=== PATIENT | male | born 1990 | race Two or more races ===

== ENCOUNTER 2016-12-23 17:54 | Emergency (ER) | payer SELFPAY ==
[~2016-12-23] VITALS: Ht 190.5 cm; Wt 86.2 kg
[2016-12-23 18:15] VITALS: BP 132/82
[2016-12-23] MEDS ORDERED: PENI500T PO (19:12)
[2016-12-23] MEDS ORDERED: TRAM50TA PO (19:12)
--- NOTE | 2016-12-23 19:12 | PHYS DOC ---
Past Medical History Past Medical History: No Pertinent History, Other Additional Past Medical Histor: dental Past Surgical History: No Surgical History Alcohol Use: None Drug Use: None Adult General Chief Complaint Chief Complaint: DENTAL PROBLEM HPI HPI Patient is a 26 year old male who presents with dental pain for years that has worsened over the last few days. Denies fever, chills. No interventions prior to arrival. Review of Systems Review of Systems Constitutional: Denies fever or chills [] Eyes: Denies change in visual acuity, redness, or eye pain [] HENT: Denies nasal congestion or sore throat. Dental pain Respiratory: Denies cough or shortness of breath [] Cardiovascular: No additional information not addressed in HPI [] GI: Denies abdominal pain, nausea, vomiting, bloody stools or diarrhea [] : Denies dysuria or hematuria [] Musculoskeletal: Denies back pain or joint pain [] Integument: Denies rash or skin lesions [] Neurologic: Denies headache, focal weakness or sensory changes [] Endocrine: Denies polyuria or polydipsia [] Allergies Allergies Allergies Coded Allergies Type Severity Reaction Last Updated Verified No Known Drug Allergies 12/23/16 No Physical Exam Physical Exam Constitutional: Well developed, well nourished, no acute distress, non-toxic appearance. HENT: Normocephalic, atraumatic, bilateral external ears normal, oropharynx moist, no oral exudates, nose normal. Braces in place upper and lower. Extensive decay at #1 with erythematous gums and without evidence of abscess. Eyes: PERRLA, EOMI, conjunctiva normal, no discharge. [] Neck: Normal range of motion, no tenderness, supple, no stridor. [] Cardiovascular:Heart rate regular rhythm, no murmur [] Lungs & Thorax: Bilateral breath sounds clear to auscultation [] Abdomen: Bowel sounds normal, soft, no tenderness, no masses, no pulsatile masses. [] Skin: Warm, dry, no erythema, no rash. [] Back: No tenderness, no CVA tenderness. [] Extremities: No tenderness, no cyanosis, no clubbing, ROM intact, no edema. [] Neurologic: Alert and oriented X 3, normal motor function, normal sensory function, no focal deficits noted. [] Psychologic: Affect normal, judgement normal, mood normal. [] Current Patient Data Vital Signs Vital Signs Date Time Temp Pulse Resp B/P Pulse Ox O2 Delivery O2 Flow Rate FiO2 12/23/16 18:15 97.7 87 20 99 Room Air 97.7 EKG EKG [] Radiology/Procedures Radiology/Procedures [] Impressions: 1. Dental infection Course & Med Decision Making Course & Med Decision Making Pertinent Labs and Imaging studies reviewed. (See chart for details) [] Dragon Disclaimer Dragon Disclaimer This electronic medical record was generated, in whole or in part, using a voice recognition dictation system. Departure Departure Impression: Primary Impression: Infected dental caries Disposition: HOME, SELF-CARE Condition: STABLE Referrals: NO PCP (PCP) Patient Instructions: Dental Caries-Brief Additional Instructions: Take medication as prescribed. Follow up with dentist as discussed. Return if problems or concerns Scripts Tramadol Hcl 50 Mg Tablet1 Tab PO PRN Q6HRS #20 TAB Prov:DUANE MEDRANO APRN 12/23/16 Penicillin V Potassium 500 Mg Tablet1 Tab PO TID #30 TAB Prov:DUANE MEDRANO APRN 12/23/16 DUANE MEDRANO APRN Dec 23, 2016 19:12
== END 2016-12-23 19:27 | disposition home or self-care (01) ==
LOC: ER 17:54
DX: K02.9 Dental caries, unspecified (principal); K08.89 Other specified disorders of teeth and supporting structures; Z98.890 Other specified postprocedural states
CPT/HCPCS: 99283